=== PATIENT | female | born 1955 | race Caucasian/White ===

== ENCOUNTER → 2016-09-13 | Outpatient (CLI) | payer OTHER | LOC: BMCIMAGING 10:40 | PROVIDERS: ATTEND Internal Medicine | DX: Z13.820 Encounter for screening for osteoporosis (principal); M85.80 Other specified disorders of bone density and structure, unspecified site ==

== ENCOUNTER → 2018-09-24 | Outpatient (CLI) | payer OTHER | LOC: BMCIMAGING 10:41 ==